=== PATIENT | female | born 1960 | race Hispanic/Latino ===

== ENCOUNTER 2018-06-10 06:23 | Day surgery (SDC) | payer OTHER ==
[2018-06-04 13:37] LABS: Absolute Lymphocytes (CBC) 2.6 K/uL (0.7-4.9); Absolute Monocytes 0.6 K/uL (0.1-1.3); Absolute Neutrophil 4.2 K/uL (1.8-8.0); Basophils % 0.7 % (0-1.3); Hematocrit 44.6 % (36.0-45.0); Lymphocytes % 34.3 % (15.3-44.8); MPV 7.3 fL (7.6-11.3); Monocytes % 8.5 % (3.3-12.3); RBC Red Blood Cell Count 4.76 M/uL (3.86-4.86)
[2018-06-04 13:37] LABS: Urine Appearance CLEAR; Urine Bilirubin NEGATIVE (NEG); Urine Blood NEGATIVE (NEG); Urine Color YELLOW; Urine Glucose NEGATIVE (NEG); Urine Protein NEGATIVE (NEG); Urine Specific Gravity 1.025 (1.005-1.030); Urine Urobilinogen 0.2 mg/dL (0.2-1.0); Urine pH 5.5 (5.0-7.0)
[2018-06-04 13:40] LABS: Urine Microscopic Reflex ORDER UMIC
[2018-06-04 13:43] LABS: Urine Bacteria 20-50 /HPF (<20); Urine RBC <5 /HPF (NONE SEEN)
[2018-06-04 13:44] LABS: Urine Culture Reflex Order NOT NEEDED; Urine Mucus MOD /HPF (NONE SEEN)
[~2018-06-10 06:23] MED LIST: CEFAZOLIN/SWI 1gm 1 GM/10 ML SYR ONE
--- OUTSIDE RECORDS SUMMARY | 2018-06-10 06:26 | XMS REPORT | Clinical Summary ---
:1960 Author Organization [facility] Address [address] [place] [address] Care Team Providers Name Role Phone Johnnie Gibson MD Primary Care Provider Allergies Active Allergy Reactions Severity Noted Date Comments Dexamethasone Other (See Comments) 10/21/2015 Nausea Medications Medication Sig Dispensed Refills Start Date End Date Status acetaminophen-codeine 0 10/17/2015 Active (TYLENOL #3) 300-30 mg per tablet predniSONE (DELTASONE) 0 10/17/2015 Active 10 MG tablet TRAVATAN Z 0.004 % INSTILL 1 DROP 2 09/20/2015 Active INTO BOTH EYES AT BEDTIME DAILY. ibuprofen Take 200 mg by 0 Active (ADVIL,MOTRIN) 200 MG mouth every 6 tablet (six) hours as needed for mild pain. aspirin (ECOTRIN) 81 Take 81 mg by 0 Active MG enteric coated mouth daily. tablet Active Problems Not on file Social History Tobacco Use Types Packs/Day Years Used Date Former Smoker Sex Assigned at Date Recorded Not on file Job Start Date Occupation Industry Not on file Not on file Not on file Travel History Travel Start Travel End No recent travel history available. Last Filed Vital Signs Not on file Plan of Treatment Health Maintenance Due Date Last Done Comments CERVICAL CANCER SCREENING 1982 BREAST CANCER SCREENING 07/18/2011 COLON CANCER SCREENING 07/18/2011 SHINGLES VACCINES (#1) 07/18/2011 INFLUENZA VACCINE 10/23/2017 11/24/2011 Results Not on fileafter 06/09/2017 Insurance Payer Benefit Plan / Group Subscriber ID Type Phone Address [facility] CHOICE/CHOICE + xxxxxxxxx HMO/PPO AETNA AETNA PPO OPEN CHOICE xxxxxxxxx PPO Advance Directives Patient has advance care planning documents on file. For more information, please contact:Daljit Vazquez[address] [place] [address]
[2018-06-10] MEDS ORDERED: Ringers Lactate 1,000 ML IV ONE (07:06)
[2018-06-10] MEDS ORDERED: CEFAZOLIN/SWI 1gm 1 GM/10 ML SYR ONE (07:08)
[2018-06-10] MEDS ORDERED: NA CHLORIDE 0.9% 1,000 ML ONE (07:08)
[2018-06-10] MEDS ORDERED: LIDOCAINE 2% MPF 5 ML VIAL ONE (07:25)
[2018-06-10] MEDS ORDERED: PROPOFOL 200 MG/20 ML VIAL IV ONE (07:25)
[2018-06-10] MEDS ORDERED: FENTANYL CITR 100 MCG/2 ML ONE (07:25)
[2018-06-10] MEDS ORDERED: ONDANSETRON 4 MG/2 ML VIAL ONE ×2 (07:26→10:04)
[2018-06-10] MEDS ORDERED: MIDAZOLAM HCL 2 MG/2 ML INJ ONE (07:26)
[2018-06-10] MEDS ORDERED: VASOPRESSIN 20 UNIT/ML VIAL ONE (07:27)
[2018-06-10] MEDS ORDERED: NA CHLORIDE 0.9% 50 ML ONE (07:27)
[2018-06-10] MEDS: CEFAZOLIN/SWI 2gm 2 GM/20 ML SYR ONE ×2 (07:36→07:42)
[2018-06-10] MEDS ORDERED: SCOPOLAMINE HYDROBROMIDE PATCH TD ONE (07:45)
[2018-06-10] MEDS: HYDROMORPHONE HCL 2 MG/ML inj ONE ×2 (09:01→09:06)
[2018-06-10] MEDS ORDERED: IBUPROFEN 200 MG TAB PO ONE (09:52)
[2018-06-10] MEDS ORDERED: IBUPROFEN 400 MG TAB ONE (09:53)
[2018-06-10] MEDS ORDERED: PROMETHAZINE 25 MG/ML VIAL ONE (12:52)
[2018-06-10 14:42] VITALS: BP 105/63; TEMP 97.4; O2SAT 100
--- NOTE | 2018-06-10 18:56 | OP ---
Date of Procedure: 06/10/2018 Surgeon: Adriana Hayes MD Preoperative Diagnoses: Stress urinary incontinence. Postoperative Diagnoses: Stress urinary incontinence. Procedures Performed: Mid urethral sling, transobturator (TVT-O), and cystoscopy. Anesthesia: General. Specimens: None. Complications: None. Drains: Miramontes catheter. Findings: Urethral hypermobility is noted in the preop exam. Brief History And Physical: The patient is a 57-year-old with complaints of urinary incontinence. T hose were evaluated at bedside, and she underwent urodynamics even though her mobility was well visua lized. Her urinary incontinence had a good component of urgency and urgency incontinence, so this wa s evaluated. She does have an overactive bladder. No other pathology was noted after cystoscopy. T he urine dip was negative for infections. Her Valsalva leak point pressures at S2 and S3 were 63 and 73 cm of water whereas at S4, which was only 600 mL was 26. She had a good capacity and maximal ure thral closure pressure on average was of about 70 cm. The PVR was only 20 mL with a demonstrable hyp ermobility and the pressures were leaked noted as above. Discussed the option of adding the mid uret hral sling after starting to treat the overactive bladder, proceeded with this, and the patient was c onsented and brought to the OR for mid urethral sling. She had done Kegel's exercises with no benefi t, had observed this over a few months, so she was ready to get the sling. Description Of Procedure: After informed consent was verified, she was brought to the OR, 2 g of Anc ef were given preop. Her urine test preop was negative for infection. After the patient was placed in a supine fashion on the operating table, general anesthesia was given, she was placed in a dorsal lithotomy position using Stevo stirrups. The bottom was clipped. Lower abdomen, vulva, vagina, and perineum were prepped and draped in a sterile fashion. Miramontes was placed to drain the bladder and ret racted superiorly after clamping with a Maria Teresa. The groin creases were marked and at the level of the external urethral meatus, markings were made on the groin line 1-2 cm lateral and 1 cm above this, t he exit points for the sling were marked way below the level of the tendon. Mid urethral area was identified by identifying the neck of the bladder above the Miramontes and then in [facility] mid urethral area the vaginal epithelium was picked up on both sides, injected with dilute vasopre ssin 10 cc. A 1 cm incision was made in the midline with a 15-blade. The vaginal epithelium and sub -epithelium were dissected away from the underlying fascia on both sides. Then, using the tips of [facility] Metzenbaum scissors at a 45 degree angle to the horizontal and vertical planes towards the ipsilate ral shoulder, dissection was performed passing under the inferior pubic ramus into the obturator spac e and after the obturator membrane was perforated, the tips of the scissors were opened up and the tr act expanded, and the scissors pulled back. In a similar fashion on the opposite side, same thing wa s done and I was able to create the tract without any problem. The spike was placed, retracing the t ract, and then the spike was passed on top of the wing guide. The wing guide handle was vertical aft er the tip of the spike exited at the skin. Similar pass was taken on the opposite side, after placing the wing guide, the spike was passed along , the plastic sheath was pulled out. The plastic dilators were cut on both sides. The sheaths were held with the sling using Maria Teresa clamps. In the mid urethral area underneath the sling, the Metzengwen m scissors were placed for tensioning. The sleeves were pulled out after proper tensioning was achie anjelica. There was slight distance between the urethra and the sling. It was not too tight, however, no t too loose either. The graft on the skin edges was trimmed, appropriately flushed with the skin. The skin pulled up. T here was no retraction. The vaginal epithelium was closed with the help of a 3-0 Vicryl in a continu ous running locked fashion after thorough irrigation and suction were performed with the saline on e sling and on the incisions in the groins. Dermabond was used to closed the skin incisions. Miramontes was removed. Cystoscopy was performed with [facility] 17-Mauritanian sheath, 30-degree lens and normal saline. At the base of the bladder, the lateral aspec ts were visualized. Urethra was visualized as well. The entire bladder was unremarkable. No eviden ce of any foreign body or trauma to the bladder. The scope was pulled out. Bladder was drained. Fo fatou was replaced. Voiding trials were ordered. The patient was recovered from anesthesia in the OR and taken to PACU in stable condition. Instrument, needle, and sponge counts were correct at the end of the case. The patient tolerated the procedure well. Estimated Blood Loss: 50. Followup: She will follow up with me in 1 week. ALPHONSE/MARY Voice ID: [id number] Report ID: [id number]
== END 2018-06-10 14:03 | disposition home or self-care (01) ==
LOC: OR 06:23
PROVIDERS: ATTEND Obstetrics & Gynecology
PROC: 0TSD0ZZ Reposition Urethra, Open Approach (ICD-10-PCS; principal; 2018-06-10 07:30)
DX: N39.46 Mixed incontinence (principal); N36.41 Hypermobility of urethra; N32.81 Overactive bladder; N95.2 Postmenopausal atrophic vaginitis
CPT/HCPCS: 36415; 81003; 81015; 85025; 86850; 86900; 86901; J0690; J1170; J2250; J2405; J2550; J2704; J3010; J7030

== ENCOUNTER 2022-08-01 08:18 | Emergency (ER) | payer OTHER ==
--- NOTE | 2022-08-01 08:54 | RAD REPORT ---
EXAM DESCRIPTION: CT - C Spine Wo Con - 08/01/2022 8:45 am CLINICAL HISTORY: neck pain COMPARISON: No comparisons TECHNIQUE: CT Scan was obtained of the cervical spine without contrast. Reformats were provided in t he sagittal and coronal plane. FINDINGS: No acute fracture of the cervical spine. No traumatic malalignment. No prevertebral edema. Posterior disc osteophyte complex that C4-5 results least moderate central spinal stenosis. There is also moderate to severe neural foraminal narrowing at this level bilaterally. Mild disc height loss at C5-6 and C6-7 with uncovertebral joint hypertrophy. This results in mild neural foraminal narrowin g on the left at C6-7. No suspicious thyroid nodules or lymphadenopathy. The lung apices are clear. IMPRESSION: No fracture or traumatic malalignment of the cervical spine. Cervical spondylosis as not ed above.
[2022-08-01] MEDS ORDERED: DIAZEPAM 10 MG/2 ML INJ SYRINGE ONE (08:57)
[2022-08-01] MEDS ORDERED: KETAMINE HCL IN 0.9 % NACL 50 MG/5 ML SYRINGE IV ONE (08:58)
[2022-08-01] MEDS ORDERED: FENTANYL CITR 100 MCG/2 ML ONE (11:30)
[2022-08-01] MEDS ORDERED: METHYLPREDNISOLONE 125 MG INJ ONE (11:32)
--- NOTE | 2022-08-01 12:11 | EDPHYS ---
Physician Documentation [facility] Name: Anna Naik Age: 62 yrs Sex: Female : 1960 Arrival Date: 08/01/2022 Time: 08:18 Bed 20 Private MD: ED Physician Edu Pickett HPI: 08/01 08:25 This 62 yrs old Female presents to ER via Ambulatory with complaints of Arm jmm Pain. 08:25 The patient or guardian complains of pain. This is a 62 year old female that presents jm to the ED with complaints of neck pain which radiates into her left arm. Symptoms have been ongoing for weeks. Worsened this morning with increased pain with movement of her neck. . Historical: - Allergies: 09:01 Dexamethasone; db - Immunization history:: Adult Immunizations unknown. - Social history:: Smoking status: Patient denies any tobacco usage or history of. ROS: 08:25 Constitutional: Negative for fever, chills, and weight loss, Cardiovascular: Negative jmm for chest pain, palpitations, and edema, Respiratory: Negative for shortness of breath, cough, wheezing, and pleuritic chest pain. 08:25 Neck: Positive for pain with movement. 08:25 MS/extremity: Positive for pain. 08:25 All other systems are negative. Exam: 08:25 Head/Face: atraumatic. Eyes: EOMI, no conjunctival erythema appreciated ENT: Moist jmm Mucus Membranes 08:25 Chest/axilla: Normal chest wall appearance and motion. Cardiovascular: Regular rate and rhythm. No edema appreciated Respiratory: Normal respirations, no respiratory distress appreciated Abdomen/GI: Non distended Back: Normal ROM Skin: General appearance color normal MS/ Extremity: Moves all extremities, no obvious deformities appreciated, no edema noted to the lower extremities Neuro: Awake and alert 08:25 Constitutional: The patient appears alert, awake, anxious, in obvious pain. 08:25 Neck: C-spine: vertebral tenderness, that is mild, diffusely, ROM/movement: pain, that is moderate, with any movement. 08:25 Psych: Behavior/mood is pleasant, cooperative, anxious. Vital Signs: 08:30 BP 113 / 90; Pulse 84; Resp 16; Pulse Ox 100% on R/A; db 08:30 BP 128 / 90; Pulse 83; Resp 16; Temp 98.2(O); Pulse Ox 100% ; Weight 76.2 kg; Height 5 db ft. 5 in. ; Pain 10/10; 09:30 BP 133 / 90; Pulse 84; Resp 16; Pulse Ox 100% on R/A; Pain 2/10; eh3 10:30 BP 119 / 79; Pulse 70; Resp 12; Pulse Ox 100% on 2 lpm NC; eh3 11:30 BP 117 / 80; Pulse 68; Resp 14; Pulse Ox 96% on R/A; eh3 12:00 BP 123 / 73; Pulse 63; Resp 14; Pulse Ox 99% on R/A; eh3 08:30 Body Mass Index 27.96 (76.20 kg, 165.1 cm) db 08:30 Pain Scale: Adult db 09:30 Pain Scale: Adult eh3 MDM: 08:25 Patient medically screened. sb 15:47 Differential diagnosis: Cervical radiculopathy, osteoarthritis, rheumatoid arthritis. sharonda Data reviewed: vital signs, nurses notes, radiologic studies, CT scan. I considered the following discharge prescriptions or medication management in the emergency department Medications were administered in the Emergency Department. See MAR. Counseling: I had a detailed discussion with the patient and/or guardian regarding: the historical points, exam findings, and any diagnostic results supporting the discharge/admit diagnosis, radiology results, the need for outpatient follow up, to return to the emergency department if symptoms worsen or persist or if there are any questions or concerns that arise at home. ED course: Pain is alleviated in the ED. Advised to follow-up with spine/neurosurgery for further evaluation otherwise given strict return precautions. Patient agrees plan of care.. 08/01 08:33 Order name: CT C Spine; Complete Time: 08:58 [facility] 08/01 08:25 Order name: Saline Lock; Complete Time: 09:08 [facility] Administered Medications: 08:58 Drug: Diazepam IVP 2 mg Route: IVP; Site: right antecubital; 3 09:45 Follow up: Response: No adverse reaction; Pain is decreased eh3 09:00 Drug: Ketamine IVP 10 mg Route: IVP; Site: right antecubital; eh3 09:45 Follow up: Response: No adverse reaction; Pain is decreased 3 10:20 Drug: Ketamine IVP 10 mg Route: IVP; Site: right antecubital; eh3 11:15 Follow up: Response: Pain is decreased eh3 10:20 Drug: Diazepam IVP 5 mg Route: IVP; Site: right antecubital; eh3 11:15 Follow up: Response: Pain is decreased eh3 10:20 Drug: Ondansetron IVP 4 mg Route: IVP; Site: right antecubital; eh3 11:15 Follow up: Response: No adverse reaction eh3 11:30 Drug: fentaNYL (PF) IVP 50 mcg {Note: administered 25mcg per MARIBELL Pak.} Route: eh3 IVP; Site: right antecubital; 11:45 Follow up: administered 25mcg (2nd dose) per MARIBELL Pak eh3 12:38 Follow up: Response: Pain is decreased eh3 11:30 Drug: MethylPrednisoLONE IVP 125 mg Route: IVP; Site: right antecubital; eh3 12:38 Follow up: Response: No adverse reaction eh3 Disposition: 12:24 Co-signature as Attending Physician, Edu MERCHANT was immediately available on-site ms3 in the Emergency Department for consultation in the care of the patient. Disposition Summary: 08/01/22 12:10 Discharge Ordered Location: Home [facility] Condition: Stable [facility] Diagnosis - Radiculopathy, cervical region [facility] Followup: [facility] - With: Private Physician - When: 2 - 3 days - Reason: Recheck today's complaints, Continuance of care, Re-evaluation by your physician Followup: [facility] - With: Skip Kelsey MD - When: 2 - 3 days - Reason: Recheck today's complaints, Continuance of care, Re-evaluation by your physician Discharge Instructions: - Discharge Summary Sheet [facility] - Cervical Radiculopathy [facility] Forms: - Medication Reconciliation Form [facility] - Thank You Letter [facility] - Antibiotic Education [facility] - Prescription Opioid Use [facility] Prescriptions: - ondansetron 4 mg Oral Tablet,disintegrating - take 1 tablet by ORAL route every 4 hours As needed as needed for nausea and m vomiting; 20 tablet; Refills: 0, Product Selection Permitted - Prednisone 20 mg Oral Tablet - take 3 tablets by ORAL route once daily for 5 days; 15 tablet; Refills: 0, [facility] Product Selection Permitted - Ultracet 37.5-325 mg Oral Tablet - take 1 tablet by ORAL route every 6 hours - for up to 5 days; do not exceed 8 jmm tablets per day.; 30 tablet; Refills: 0, Product Selection Permitted - Zanaflex 4 mg Oral Tablet - take 1 tablet by ORAL route every 8 hours As needed; 20 tablet; Refills: 0, jmm Product Selection Permitted Signatures: Dispatcher [employer] Christiano Moore PA PA jmm Sims, Marcus, DO DO ms3 Keyla Shaw RN RN eh3 Lisa Llamas, RN RN db
--- NOTE | 2022-08-01 12:11 | ER ---
Nurse's Notes [facility] Name: Anna Naik Age: 62 yrs Sex: Female : 1960 Arrival Date: 08/01/2022 Time: 08:18 Bed 20 Private MD: Diagnosis: Radiculopathy, cervical region Presentation: 08/01 08:30 Chief complaint: Patient states: left arm and shoulder pain increased last night. db Denies recent injury. States 2 weeks ago saw provider and was given moloxacam and stopped taking medicine 4 days ago because pain stopped. Coronavirus screen: Vaccine status: Patient reports receiving the 2nd dose of the covid vaccine. Client denies travel out of the [place] in the last 14 days. At this time, the client does not indicate any symptoms associated with coronavirus-19. Ebola Screen: Patient negative for fever greater than or equal to 101.5 degrees Fahrenheit, and additional compatible Ebola Virus Disease symptoms Patient denies exposure to infectious person. Patient denies travel to an Ebola-affected area in the 21 days before illness onset. No symptoms or risks identified at this time. Initial Sepsis Screen: Does the patient meet any 2 criteria? No. Patient's initial sepsis screen is negative. Does the patient have a suspected source of infection? No. Patient's initial sepsis screen is negative. Risk Assessment: Do you want to hurt yourself or someone else? Patient reports no desire to harm self or others. Onset of symptoms was August 01, 2022. 08:30 Method Of Arrival: Ambulatory db 08:30 Acuity: VINCENZO 3 db Triage Assessment: 09:01 General: Appears in no apparent distress. uncomfortable, Behavior is calm, cooperative. db Pain: Complains of pain in left arm. Historical: - Allergies: 09:01 Dexamethasone; db - Immunization history:: Adult Immunizations unknown. - Social history:: Smoking status: Patient denies any tobacco usage or history of. Screenin:30 [facility] ED Fall Risk Assessment (Adult) Score/Fall Risk Level 0 - 2 = Low Risk. Abuse eh3 screen: Denies threats or abuse. Denies injuries from another. Nutritional screening: No deficits noted. Tuberculosis screening: No symptoms or risk factors identified. Assessment: 08:30 General: Appears distressed, uncomfortable, Behavior is cooperative, appropriate for eh3 age, restless. Pain: Complains of pain in left arm Pain does not radiate. Neuro: Level of Consciousness is awake, alert, obeys commands, Oriented to person, place, time, situation. Cardiovascular: Capillary refill < 3 seconds Patient's skin is warm and dry. Respiratory: Airway is patent Respiratory effort is even, unlabored, Respiratory pattern is regular, symmetrical. GI: Abdomen is round non-distended. : No signs and/or symptoms were reported regarding the genitourinary system. EENT: No signs and/or symptoms were reported regarding the EENT system. Derm: Skin is intact, is healthy with good turgor, Skin is pink, warm \T\ dry. Musculoskeletal: Circulation, motion, and sensation intact. Range of motion: limited in left shoulder. 08:40 Reassessment: patient to CT. db 09:30 Reassessment: Patient appears in no apparent distress at this time. Patient and/or 3 family updated on plan of care and expected duration. Pain level reassessed. Patient is alert, oriented x 3, equal unlabored respirations, skin warm/dry/pink. Patient states symptoms have improved. 10:20 Reassessment: Pt desaturated to 85% on room air after 2nd dose of Ketamine and eh3 Diazepam, administered O2 via NC at 2lpm, SpO2 increased to 97%. 10:30 Reassessment: Patient appears in no apparent distress at this time. Patient and/or 3 family updated on plan of care and expected duration. Pain level reassessed. Patient is alert, oriented x 3, equal unlabored respirations, skin warm/dry/pink. 10:40 Reassessment: Supplemental O2 via NC discontinued; pt maintains SpO2 of 98% on room air.eh3 11:30 Reassessment: Patient appears in no apparent distress at this time. Patient and/or 3 family updated on plan of care and expected duration. Pain level reassessed. Patient is alert, oriented x 3, equal unlabored respirations, skin warm/dry/pink. Vital Signs: 08:30 BP 113 / 90; Pulse 84; Resp 16; Pulse Ox 100% on R/A; db 08:30 BP 128 / 90; Pulse 83; Resp 16; Temp 98.2(O); Pulse Ox 100% ; Weight 76.2 kg; Height 5 db ft. 5 in. ; Pain 10/10; 09:30 BP 133 / 90; Pulse 84; Resp 16; Pulse Ox 100% on R/A; Pain 2/10; eh3 10:30 BP 119 / 79; Pulse 70; Resp 12; Pulse Ox 100% on 2 lpm NC; eh3 11:30 BP 117 / 80; Pulse 68; Resp 14; Pulse Ox 96% on R/A; eh3 12:00 BP 123 / 73; Pulse 63; Resp 14; Pulse Ox 99% on R/A; eh3 08:30 Body Mass Index 27.96 (76.20 kg, 165.1 cm) db 08:30 Pain Scale: Adult db 09:30 Pain Scale: Adult 3 ED Course: 08:22 Patient arrived in ED. bd 08:25 Christiano Roebrt PA is PHCP. jmm 08:25 Edu Pickett DO is Attending Physician. jmm 08:30 Patient has correct armband on for positive identification. Bed in low position. Call 3 light in reach. Side rails up X2. Adult w/ patient. Client placed on continuous cardiac and pulse oximetry monitoring. NIBP monitoring applied. Door closed. Noise minimized. Lights dimmed. 08:33 Keyla Shaw, GARRETT is Primary Nurse. eh3 08:46 CT C Spine In Process Unspecified. EDMS 08:57 Inserted saline lock: 20 gauge in right antecubital area, using aseptic technique. eh3 09:01 Triage completed. db 09:01 Arm band placed on Patient placed in an exam room. db 12:11 Skip Kelsey MD is Referral Physician. [facility] 12:30 No provider procedures requiring assistance completed. IV discontinued, intact, eh3 bleeding controlled, No redness/swelling at site. Pressure dressing applied. Administered Medications: 08:58 Drug: Diazepam IVP 2 mg Route: IVP; Site: right antecubital; eh3 09:45 Follow up: Response: No adverse reaction; Pain is decreased eh3 09:00 Drug: Ketamine IVP 10 mg Route: IVP; Site: right antecubital; eh3 09:45 Follow up: Response: No adverse reaction; Pain is decreased eh3 10:20 Drug: Ketamine IVP 10 mg Route: IVP; Site: right antecubital; eh3 11:15 Follow up: Response: Pain is decreased eh3 10:20 Drug: Diazepam IVP 5 mg Route: IVP; Site: right antecubital; eh3 11:15 Follow up: Response: Pain is decreased eh3 10:20 Drug: Ondansetron IVP 4 mg Route: IVP; Site: right antecubital; eh3 11:15 Follow up: Response: No adverse reaction 3 11:30 Drug: fentaNYL (PF) IVP 50 mcg {Note: administered 25mcg per MARIBELL Pak.} Route: eh3 IVP; Site: right antecubital; 11:45 Follow up: administered 25mcg (2nd dose) per MARIBELL Pak eh3 12:38 Follow up: Response: Pain is decreased eh3 11:30 Drug: MethylPrednisoLONE IVP 125 mg Route: IVP; Site: right antecubital; eh3 12:38 Follow up: Response: No adverse reaction 3 Medication: 12:30 VIS not applicable for this client. 3 Intake: Outcome: 12:10 Discharge ordered by MD. basurto 12:30 Discharged to home via wheelchair, with family. 3 12:30 Condition: stable 12:30 Discharge instructions given to patient, family, Instructed on discharge instructions, follow up and referral plans. medication usage, Demonstrated understanding of instructions, follow-up care, medications, Prescriptions given X 4. 12:37 Patient left the ED. 3 Signatures: Dispatcher [employer] EDMS Maisha Walter Joel, PA PA Keyla Bustillos RN RN 3 Lisa Llamas RN RN db Corrections: (The following items were deleted from the chart) 10:44 10:30 Reassessment: Pt desaturated to 85% on room air after 2nd dose of Ketamine and 3 Diazepam, administered O2 via NC at 2lpm, SpO2 increased to 97% 3 11:17 10:40 Reassessment: O2 discontinued; pt maintains SpO2 of 98% on room air [facility] 12:35 12:30 Discharged to home ambulatory, with family, 3 3
[2022-08-01 12:47] VITALS: TEMP 98.2
[2022-08-01 13:05] VITALS: BP 123/73; O2SAT 99
== END 2022-08-01 12:37 | disposition home or self-care (01) ==
LOC: SUPCPDRO 08:18 → ER 08:18
DX: M54.12 Radiculopathy, cervical region (principal); Z88.8 Allergy status to other drugs, medicaments and biological substances
CPT/HCPCS: 72125; J3360; J3010; J2930

== ENCOUNTER 2023-01-18 23:03 | Inpatient (IN) | payer OTHER ==
--- OUTSIDE RECORDS SUMMARY | 2023-01-18 23:06 | XMS REPORT | Continuity of Care Document ---
:1960 Author Organization [facility] t Address [address] [place] [address] [address] [place] [address] Care Team Providers Name Role Phone Paige WATERS, Johnnie Beach Primary Care Physician Chris WATERS, Tirso Orantes Attending Clinician [phone] Malik WATERS, Glen Champagne Attending Clinician [phone] Michelle Sullivan APRN Attending Clinician [phone] TIRSO HAWKINS Admitting Clinician Unavailable Payers Payer Name Policy Type Policy Number Effective Date Expiration Date S ource Problems Condition Condition Condition Status Onset Resolution Last Treating Co mments Source Name Details Category Date Date Treatment Clinician Date Cervical Cervical Disease Active Metho di myelopathy myelopathy 09-03 00:00: Hospita 00 l Allergies, Adverse Reactions, Alerts Allergy Allergy Status Severity Reaction(s) Onset Inactive Treating Comm ents Source Name Type Date Date Clinician Titi Bowser Active GI Methodi ty to Intolerance 09-03 adverse 00:00: Hospita reaction 00 l s to drug Social History Social Habit Start Date Stop Date Quantity Comments Source History of tobacco Current smoker [facility] Alcohol intake 2022-09-05 2022-09-05 Current drinker [facility] dist 00:00:00 00:00:00 of alcohol Hospital (finding) History of Social 2022-09-05 2022-09-[address] function 00:00:00 00:00:00 Hospital Sex Assigned At [birth year] [facility] 00:00:00 00:00:00 Hospital Smoking Status Start Date Stop Date Source Ex-smoker 2022-09-03 00:00:00 2022-09-03 [facility] Ordered Filled Start Stop Current Ordering Indication Dosage Frequency Signature Comments Components Source Medication Medication Date Date Medication? Clinician (SIG) Name Name ibuprofen 2022- No 200mg Q6H Take 1 Meth yara (ADVIL,MOTR -04 09-[address] [place]) 200 MG 11:48: 00:00 (200 mg Hos mica tablet 42 :00 total) by l mouth every 6 (six) hours as needed for mild pain. aspirin 2022- No 81mg QD Take 1 Methodi (ECOTRIN) 09-04 tablet (81 st 81 MG 11:48: 00:00 mg total) Hospit a enteric 42 :00 by mouth l coated daily. tablet tafluprost, Yes 1[drp] QD 1 drop Me thodi PF, 6-[address] (Zioptan, 11:48: Hospita PF,) 0.0015 40 l % dropperette flecainide Yes 100mg Q.5D Take 1 Meth yara (TAMBOCOR) [address] 100 MG 11:48: (100 mg Hospita tablet 40 total) by l mouth 2 (two) times a day. traMADol-ac 0 Yes [id number] 1{tbl} Q6H Take 1 M ethodi etaminophen -[address] (ULTRACET) 11:48: mouth Hospit a 37.5-325 mg 40 every 6 l per tablet (six) hours as needed for moderate pain .acute pain. tiZANidine 0 Yes 4mg Q8H Take 1 Metho di (ZANAFLEX) 6-13 tablet (4 st 4 MG tablet 11:48: mg total) H ospita 40 by mouth l every 8 (eight) hours as needed for muscle spasms. diltiazem 2022-0 Yes Q.25D Take by Meth yara (CardIZEM) 6-[address] 30 MG 11:48: (four) Hospita tablet 40 times a l day. estradioL 2023-0 Yes 10ug QD Insert 10 Met hodi (Vagifem) 6-[address] 10 mcg 11:48: the vagina Hospi ta vaginal 40 daily. l tablet predniSONE Yes [facility] (DELTASONE) 10-16 st 10 MG 00:00: Hospita tablet 00 l acetaminoph Metho di en-codeine 10-16 06-12 st (TYLENOL 00:00: 00:00 Hospita #3) 300-30 00 :00 l mg per tablet TRAVATAN Z Yes INSTILL 1 Tx thodi 0.004 % 6-[address] 00:00: BOTH EYES Hospita 00 AT BEDTIME l DAILY. Vital Signs Vital Name Observation Time Observation Value Comments Source Heart rate 2022-09-04 81 /min [facility] 15:59:00 [facility] Respiratory rate 2022-09-04 21 /min [facility] 15:59:00 [facility] Systolic blood 2022-09-04 124 mm[Hg] sit, 119/64 [facility] pressure 14:06:00 stand, 131/77 Hospital post ambulation Diastolic blood 2022-09-04 60 mm[Hg] sit, 119/64 [facility] pressure 14:06:00 stand, 131/77 Hospital post ambulation Oxygen saturation 2022-09-04 97 /min [facility] in Arterial blood 14:06:00 Hospital by Pulse oximetry Body temperature 2022-09-04 36.94 Kassy [facility] 12:56:57 [facility] Body height 2022-09-03 165.1 cm [facility] 11:26:00 [facility] Body weight 2022-09-03 75.297 kg [facility] 11:26:00 [facility] BMI 2022-09-03 27.62 kg/m2 [facility] 11:26:00 Hospital Procedures Procedure Date / Time Performing Clinician Source Performed XR CERVICAL SPINE 2 OR 3 2022-12-05 17:25:00 Tirso Hawkins [facility] [place] XR CERVICAL SPINE 2 OR 3 2022-09-17 17:52:00 Tirso Hawkins [facility] [place] XR CERVICAL SPINE 2 OR 3 2022-09-03 20:11:00 Tirso Hawkins [facility] [place] POC GLUCOSE 2022-09-03 18:38:00 [facility] [place] SURGICAL PATHOLOGY 2022-09-03 15:45:00 [facility] REQUEST [place] > 1 HOUR 2022-09-03 14:30:00 [facility]so [facility] [place] ARTERIAL LINE 2022-09-03 13:26:51 [facility] Lisa AR AN ELECTIVE 2022-09-03 12:29:00 [facility] ENDOTRACHEAL AIRWAY Lisa DISCECTOMY, CERVICAL, 2022-09-03 12:20:00 Tirso Hawkins [facility] WITH FUSION, ANTERIOR [place] APPROACH ABO AND RH CONFIRMATION 2022-09-03 11:40:[address] [facility] BY PROTOCOL [place] TYPE AND SCREEN 2022-08-29 17:42:[address] [facility] HEMOGLOBIN A1C 2022-08-29 17:42:[address] [facility] CBC WITH PLATELET AND 2022-08-29 17:42:00 [facility] DIFFERENTIAL COMPREHENSIVE METABOLIC 2022-08-29 17:42:00 [facility] PANEL ESTIMATED GFR 2022-08-29 17:42:[address] [facility] ECG PRE/POST OP 2022-08-29 17:25:[address] [facility] MRI SPINE EXTERNAL STUDY 2022-08-16 13:59:00 Tirso Hawkins [facility] [place] CT SPINE EXTERNAL STUDY 2022-08-01 13:44:[address] [facility] [place] XR SPINE EXTERNAL STUDY 2022-07-12 13:51:[address] [facility] [place] XR CHEST EXTERNAL STUDY 2022-07-12 13:48:[address] [facility] [place] Plan of Care Planned Activity Planned Date Details Comments Source Future Scheduled 2023-01-18 Screening for [facility] Test 00:57:43 malignant neoplasm of colon (procedure) [code = 851135717] Future Scheduled 2023-01-18 INFLUENZA VACCINE [facility] Test 00:57:43 (#1) [code = INFLUENZA VACCINE (#1)] Future Scheduled 2023-01-18 [facility] for [facility] Test 00:57:43 malignant neoplasm of colon (procedure) [code = 893632420] Future Scheduled 2023-01-18 [facility] for [facility] Test 00:57:43 malignant neoplasm of colon (procedure) [code = 055989700] Future Scheduled 2023-01-18 COVID-[address] [facility] Test 00:57:43 (#1) [code = COVID-19 VACCINE (#1)] Future Scheduled 2023-01-18 Hepatitis C [facility] Test 00:57:43 screening (procedure) [code = 950058626] Future Scheduled 2023-01-18 [facility] for [facility] Test 00:57:43 malignant neoplasm of cervix (procedure) [code = 348840002] Future Scheduled 2023-01-18 BREAST [facility]CER [facility] Test 00:57:43 SCREENING [code = BREAST CANCER SCREENING] Future Scheduled 2023-01-18 [facility] for [facility] Test 00:57:43 malignant neoplasm of colon (procedure) [code = 157052959] Future Scheduled 2023-01-18 SHINGLES VACCINES [facility] Test 00:57:43 (1 of 2) [code = SHINGLES VACCINES (1 of 2)] Future Scheduled 2023-01-18 [facility]ening for [facility] Test 00:57:43 malignant neoplasm of colon (procedure) [code = 453982786] Encounters Start End Encounter Admission Attending Care Care Encounter Source Date/Time Date/Time Type Type Clinicians Facility Department ID 2022-12-05 2022-12-05 [facility], 1.2.840.1 [id number] Methodi 12:12:15 23:59:00 Encounter Tirso 78861.1.1 Qiana Orantes 3.430.2.7 Hospi .3.660296 l .8 2022-12-05 2022-12-05 Outpatient [facility] [id number] [address] [place] 00:00:00 00:00:[address] 2022-12-05 2022-12-05 [facility], 1.2.840.1 [id number] Method[facility] 00:00:00 00:00:00 Orders Tirso 43748.1.[address] [place] 3.430.2.7 Hospi ta .3.175619 l .8 2022-09-17 2022-09-17 [facility], 1.2.840.1 [id number] Methodi 12:15:00 23:59:00 Encounter Tirso 38911.1.1 9[address] [place] 3.430.2.7 Hospi ta .3.220651 l .8 2022-09-17 2022-09-17 Outpatient [facility] [id number] [address] [place] [address] 00:00:00 00:00:00 [address]SO [address] 2022-09-17 2022-09-17 [facility], 1.2.840.1 [id number] Methodi 00:00:00 00:00:00 Orders Tirso [address]22.1.[address] [place] 3.430.2.7 Hospi ta .3.039194 l .8 2022-09-03 2022-09-04 [facility], 1.2.840.1 [id number] Methodi 05:29:00 11:45:00 Encounter Tirso 12785.1.1 838 [address] [place] 3.430.2.7 Hospi ta .3.666306 l .8 2022-09-03 2022-09-04 Outpatient [facility] [id number] [address] [place] 00:00:00 00:00:00 TIRSO [address] 2022-09-03 2022-09-03 Surgery [facility], 1.2.840.1 [id number] Methodi 07:15:00 10:15:[address] [place] 3.430.2.7 Hospi ta .3.979232 l .8 2022-09-03 2022-09-03 Anesthesia [place] 1.2.840.1 [id number] Methodi 07:20:00 10:04:[address]1.[address] 3.430.2.7 Hospit a .3.231582 l .8 2022-09-03 2022-09-03 Travel 1.2.840.1 1.2.514.047 [id number] Methodi 00:00:00 00:00:[address] 3.430.2.7 0.2.7.3.698 Ho spita .3.211751 084.8 l .8 2022-08-29 2022-08-29 Pre-Admiss Chela Hawkinsnathan [place] 1.2.8 40.1 [id number] Methodi 11:30:00 12:30:00 Michelle Ruiz 41249.1.[address] Testing 3.430.2.7 Hospit a .3.704608 l .8 2022-08-29 2022-08-29 [facility] [id number] [address] [place] [address] 00:00:00 00:00:00 TIRSO [address] 2022-08-29 2022-08-29 Travel 1.2.840.1 1.2.946.738 [id number] Methodi 00:00:00 00:00:[address] 3.430.2.7 0.2.7.3.698 Ho spita .3.900254 084.8 l .8 2022-08-28 2022-08-28 [facility] 1.2.840.1 [id number] [id number] Methodi 10:04:43 23:59:00 Encounter Tirso 20171.1.1 944 s t [place] 3.430.2.7 Hospi ta .3.871329 l .8 2022-08-28 2022-08-28 [facility], 1.2.840.1 [id number] Methodi 10:04:03 23:59:00 Encounter Tirso 24821.1.1 765 [address] [place] 3.430.2.7 Hospi ta .3.242729 l .8 2022-08-28 2022-08-28 [facility], 1.2.840.1 [id number] Methodi 10:03:23 10:03:23 Encounter Tirso 60154.1.1 590 [address] [place] 3.430.2.7 Hospi ta .3.879270 l .8 2022-08-28 2022-08-28 [facility], 1.2.840.1 [id number] Methodi 10:02:51 10:02:51 Encounter Tirso 34846.1.1 [address] [place] 3.430.2.7 Hospi ta .3.081001 l .8 2022-08-28 2022-08-28 [facility] [id number] [place] [address] 00:00:00 00:00:00 TIRSO [address] 2022-08-28 2022-08-[address] 00:00:00 00:00:00 TIRSO [address] 2022-08-28 2022-08-[address] 00:00:00 00:00:[address]IRSO [address] 2022-08-28 2022-08-28 [facility] [id number] [place] [address] 00:00:00 00:00:[address]IRSO [address] Results Test Description Test Time Test Comments Results Result Comments Source Surgical pathology request 2022-09-04 21:44:50 Test Item Value Reference Range Interpretation Comme nts Case number (test code = 1744440) [id number] Surgical pathology report (test code = See link below for PDF Lab R eport 5700) Result status (test code = 2434229) This is Final Report for [id number] [facility] [id number] 18:39:00 Test Item Value Reference Range Interpretation Comments POC glucose (test code 120 mg/dL 65-99 H Opera tor Name: Raul = [id number]) Twial Wright ID: [id number] able: [facility] Notified insemination worker Interpretation Abnormal (test code = 26613-8) [facility] [id number] 13:17:26 Test Item Value Reference Range Interpretation Comments Ventricular rate (test 59 code = 253) Atrial rate (test code = 59 255) AR interval (test code = 140 266) QRSD interval (test code 92 = 260) QT interval (test code = 384 264) QTC interval (test code 380 = 265) P axis 1 (test code = 27 267) QRS axis 1 (test code = 49 268) T wave axis (test code = 39 270) EKG impression (test Sinus code = 273) bradycardia-Otherwise normal ECG-No previous ECGs available-Electronica lly Signed By Marla Gomez MD ([id number]) on 08/30/2022 8:16:23 AM [facility]
[2023-01-18 23:39] LABS: Absolute Lymphocytes (CBC) 2.1 K/uL (0.7-4.9); Hematocrit 38.8 % (36.0-45.0); Lymphocytes % 21.2 % (15.3-44.8); MPV 7.1 fL (7.6-11.3); Platelets 209 thou/uL (152-406); RBC Red Blood Cell Count 4.18 M/uL (3.86-4.86)
[2023-01-18 23:46] LABS: Specific Gravity 1.008 (1.005-1.030); Urine Bacteria None Seen /HPF (<20); Urine Bilirubin NEGATIVE (Negative); Urine Blood Trace (Negative); Urine Clarity Clear (Clear); Urine Color Colorless (Yellow); Urine Glucose NEGATIVE (Negative); Urine Protein NEGATIVE (Negative); Urine RBC <5 /HPF (None Seen); Urine Urobilinogen Normal (Normal)
[2023-01-18 23:57] LABS: Albumin 3.6 g/dL (3.4-5.0); Bilirubin Total 0.4 mg/dL (0.2-1.0); Potassium 3.8 mEq/L (3.5-5.1); Protein, Total 7.2 g/dL (6.4-8.2)
[2023-01-19] MEDS ORDERED: MORPHINE 4 MG/ML SYR ONE ×2 (00:13→14:00)
[2023-01-19] MEDS ORDERED: ONDANSETRON 4 MG/2 ML VIAL ONE ×3 (00:14→10:32)
[2023-01-19] MEDS ORDERED: MORPHINE 2 MG/ML SYR ONE (01:06)
--- NOTE | 2023-01-19 01:31 | EDPHYS ---
Physician Documentation [facility] Name: Anna Naik Age: 62 yrs Sex: Female : 1960 Arrival Date: 01/18/2023 Time: 23:03 Bed 23 Private MD: Peri Gibson C ED Physician Leonides Christian HPI: 01/18 23:33 This 62 yrs old Female presents to ER via Ambulatory with complaints of rn Abdominal Pain. 23:33 The patient presents with abdominal pain in the left lower quadrant. Onset: The rn symptoms/episode began/occurred 10 day(s) ago. The symptoms radiate to left back. Associated signs and symptoms: Pertinent positives: nausea, Pertinent negatives: blood in stools, fever, hematuria. The symptoms are described as crampy, intermittent. Modifying factors: The symptoms are alleviated by nothing, the symptoms are aggravated by pressure. Severity of pain: At its worst the pain was moderate in the emergency department the pain is unchanged. The patient has experienced a previous episode. The patient has not recently seen a physician. Patient reports 10 days of left lower quadrant abdominal pain that got worse today. History of diverticulitis in the past. Feels similar. Reports low-grade temperature. No vomiting or blood in stool.. Historical: - Allergies: 23:20 Dexamethasone; kd3 - Immunization history:: Adult Immunizations up to date. - Social history:: Smoking status: Patient denies any tobacco usage or history of. - Family history:: not pertinent. - Hospitalizations: : No recent hospitalization is reported. ROS: 23:33 Constitutional: Positive for fever Cardiovascular: Negative for chest pain, rn palpitations, and edema, Respiratory: Negative for shortness of breath, cough, wheezing, and pleuritic chest pain, Abdomen/GI: Positive for left lower quadrant abdominal pain Back: Positive for left lower back pain MS/Extremity: Negative for injury and deformity, Skin: Negative for injury, rash, and discoloration, Neuro: Negative for headache, weakness, numbness, tingling, and seizure, Exam: 23:33 Constitutional: This is a well developed, well nourished patient who is awake, alert, rn appears uncomfortable, ambulatory to room without assistance Head/Face: Normocephalic, atraumatic. Cardiovascular: Regular rate and rhythm. No pulse deficits. Respiratory: No increased work of breathing, no retractions or nasal flaring. Abdomen/GI: Soft, tender left lower quadrant and left upper quadrant with guarding. Skin: Warm, dry MS/ Extremity: Pulses equal, no cyanosis. Neuro: Awake and alert, GCS 15 Vital Signs: 23:19 BP 135 / 89; Pulse 97; Resp 16; Temp 99.6; Pulse Ox 100% on R/A; Weight 73.48 kg; kd3 Height 5 ft. 5 in. ; 23:19 Body Mass Index 26.96 (73.48 kg, 165.1 cm) kd3 MDM: 23:05 Patient medically screened. rn 01/19 01:30 Differential diagnosis: appendicitis, bowel obstruction, diverticulitis, non-specific rn abd pain. Data reviewed: vital signs, nurses notes, lab test result(s), radiologic studies, CT scan, and as a result, I will admit patient. Consideration of Admission/Observation Patient was admitted/placed on observation. Escalation of care including admission/observation considered. Counseling: I had a detailed discussion with the patient and/or guardian regarding the historical points, exam findings, and any diagnostic results supporting the discharge/admit diagnosis, lab results, radiology results, the need for further work-up and treatment in the hospital. Response to treatment: There is no appreciated change of the patient's symptoms at this time, and as a result, I will admit patient. 01:30 ED course: Patient with mild improvement but still complaining of pain. Will give a rn dose of Dilaudid since morphine was not really doing much. CT chest resulted no evidence of perforation/free air/free fluid. No abscess. Will admit to Dr. Gibson with surgical consultation. 05:45 ED course: Consulted with Dr. Gallo regarding patient's diagnosis of non-perforated rn diverticulitis and delayed presentation, will see patient today. . 01/18 23:20 Order name: CBC with Diff; Complete Time: 23:58 rn 01/18 23:20 Order name: CMP; Complete Time: 23:58 rn 01/18 23:20 Order name: Urinalysis w/ reflexes; Complete Time: 23:58 rn 01/18 23:20 Order name: CT Abd/Pelvis - IV Contrast Only rn 01/18 23:20 Order name: IV Saline Lock; Complete Time: 23:33 rn 01/18 23:20 Order name: Labs collected and sent; Complete Time: 23:33 rn 01/18 23:20 Order name: NPO; Complete Time: 00:02 rn Administered Medications: 00:07 Drug: Ondansetron IVP 4 mg IVP once; over 2 minutes Route: IVP; Site: right antecubital;kd3 00:07 Drug: morphine IVP or IV 4 mg IVP once over 4 mins Route: IVP; Infused Over: 4 mins; kd3 Site: right antecubital; 00:55 Drug: morphine IVP or IV 2 mg IVP once over 4 mins Route: IVP; Infused Over: 4 mins; jb4 Site: right antecubital; 02:00 Drug: Ciprofloxacin IVPB 400 mg 200 ml IVPB once over 60 mins Volume: 200 ml; Route: jb4 IVPB; Infused Over: 60 mins; Site: right antecubital; 02:00 Drug: metroNIDAZOLE IVPB 500 mg 100 ml IVPB at 200 ml/hr once over 30 mins Volume: 100 jb4 ml; Route: IVPB; Rate: 200 ml/hr; Infused Over: 30 mins; Site: right antecubital; 02:03 Drug: HYDROmorphone IVP 1 mg IVP once Route: IVP; Site: right hand; jb4 02:41 Drug: Ondansetron IVP 4 mg IVP once; over 2 minutes Route: IVP; Site: right hand; jb4 Disposition Summary: 01/19/23 01:31 Hospitalization Ordered Notes: Hospitalization Status: Inpatient Admission rn Provider: Peri Gibson rn Condition: Stable rn Problem: new rn Symptoms: are unchanged rn Bed/Room Type: Standard rn Location: Telemetry/MedSurg (Inpatient)(01/19/23 20:24) cg Room Assignment: [facility](01/19/23 20:24) cg Diagnosis - Diverticulitis of large intestine without perforation or abscess without bleeding rn Forms: - Medication Reconciliation Form rn - SBAR form rn - Leadership Thank You Letter rn Signatures: Dispatcher BacilioHost Leonides Feliciano MD MD rn Garcia, Cindy, RN RN cg Bryson, James, RN RN jb4 Divya Truong RN RN kd3 Corrections: (The following items were deleted from the chart) 01:31 Telemetry/MedSurg (Inpatient) rn cg 01:31 rn cg 05:46 05:45 ED course: Consulted with Dr. Gallo regarding patient's diagnosis of rn non-perforated diverticulitis, will see patient today. . rn 02: [facility] ER HOLD cg cg ERHOLD- cg cg
--- NOTE | 2023-01-19 01:31 | ER ---
Nurse's Notes [facility] Name: Anna Naik Age: 62 yrs Sex: Female : 1960 Arrival Date: 01/18/2023 Time: 23:03 Bed 23 Private MD: Peri Gibson C Diagnosis: Diverticulitis of large intestine without perforation or abscess without bleeding Presentation: 01/18 23:19 Chief complaint: Patient states: I am having severe left lower quadrant pain that goes kd3 into my back. It has been there for about a week but has gotten worse since yesterday. I have a history of diverticulitis and it feels similar to that. Coronavirus screen: Vaccine status: Patient reports receiving the 2nd dose of the covid vaccine. Ebola Screen: No symptoms or risks identified at this time. Initial Sepsis Screen: Does the patient meet any 2 criteria? No. Patient's initial sepsis screen is negative. Does the patient have a suspected source of infection? No. Patient's initial sepsis screen is negative. Risk Assessment: Do you want to hurt yourself or someone else? Patient reports no desire to harm self or others. Onset of symptoms was January 18, 2023. 23:19 Method Of Arrival: Ambulatory kd3 23:19 Acuity: VINCENZO 3 kd3 Triage Assessment: 23:20 General: Appears uncomfortable, Behavior is calm, cooperative. Pain: Complains of pain kd3 in left lower quadrant. GI: Abdomen is non-distended, Bowel sounds present X 4 quads. Historical: - Allergies: 23:20 Dexamethasone; kd3 - Immunization history:: Adult Immunizations up to date. - Social history:: Smoking status: Patient denies any tobacco usage or history of. - Family history:: not pertinent. - Hospitalizations: : No recent hospitalization is reported. Assessment: 23:35 General: Appears uncomfortable, Behavior is calm, cooperative. kd3 23:35 Pain: Complains of pain in left lower quadrant. Neuro: Level of Consciousness is awake, kd3 alert, obeys commands, Oriented to person, place, time, situation. Cardiovascular: Patient's skin is warm and dry. Respiratory: Airway is patent Trachea midline Respiratory effort is even, unlabored, Respiratory pattern is regular, symmetrical. GI: Abdomen is tender to palpation in left lower quadrant. 01/19 00:30 Reassessment: Patient appears in no apparent distress at this time. Patient and/or jb4 family updated on plan of care and expected duration. Pain level reassessed. Patient is alert, oriented x 3, equal unlabored respirations, skin warm/dry/pink. 01:30 Reassessment: Patient appears in no apparent distress at this time. Patient and/or jb4 family updated on plan of care and expected duration. Pain level reassessed. Patient is alert, oriented x 3, equal unlabored respirations, skin warm/dry/pink. 02:23 GI: Bowel sounds present X 4 quads. kd3 02:23 Reassessment: Patient appears in no apparent distress at this time. Patient and/or jb4 family updated on plan of care and expected duration. Pain level reassessed. Patient is alert, oriented x 3, equal unlabored respirations, skin warm/dry/pink. Vital Signs: 01/18 23:19 BP 135 / 89; Pulse 97; Resp 16; Temp 99.6; Pulse Ox 100% on R/A; Weight 73.48 kg; kd3 Height 5 ft. 5 in. ; 23:19 Body Mass Index 26.96 (73.48 kg, 165.1 cm) kd3 ED Course: 23:05 Patient arrived in ED. es 23:05 Peri Gibson MD is Private Physician. es 23:05 Leonides Christian MD is Attending Physician. rn 23:18 Divya Truong RN is Primary Nurse. kd3 23:20 Triage completed. kd3 23:20 Arm band placed on right wrist. kd3 23:33 CBC with Diff Sent. kd3 23:33 CMP Sent. kd3 23:33 Urinalysis w/ reflexes Sent. kd3 23:33 Inserted saline lock: 20 gauge in right antecubital area, using aseptic technique. kd3 Blood collected. 01/19 00:26 CT Abd/Pelvis - IV Contrast Only In Process Unspecified. EDMS 01:30 Peri Gibson MD is Hospitalizing Provider. rn Administered Medications: 00:07 Drug: Ondansetron IVP 4 mg IVP once; over 2 minutes Route: IVP; Site: right antecubital;kd3 00:07 Drug: morphine IVP or IV 4 mg IVP once over 4 mins Route: IVP; Infused Over: 4 mins; kd3 Site: right antecubital; 00:55 Drug: morphine IVP or IV 2 mg IVP once over 4 mins Route: IVP; Infused Over: 4 mins; jb4 Site: right antecubital; 02:00 Drug: Ciprofloxacin IVPB 400 mg 200 ml IVPB once over 60 mins Volume: 200 ml; Route: jb4 IVPB; Infused Over: 60 mins; Site: right antecubital; 02:00 Drug: metroNIDAZOLE IVPB 500 mg 100 ml IVPB at 200 ml/hr once over 30 mins Volume: 100 jb4 ml; Route: IVPB; Rate: 200 ml/hr; Infused Over: 30 mins; Site: right antecubital; 02:03 Drug: HYDROmorphone IVP 1 mg IVP once Route: IVP; Site: right hand; jb4 02:41 Drug: Ondansetron IVP 4 mg IVP once; over 2 minutes Route: IVP; Site: right hand; jb4 Outcome: 01:31 Decision to Hospitalize by Provider. rn 21:03 Patient left the ED. cm10 Signatures: Dispatcher [employer] Anjelica Canales Roman, MD MD rn Bryson, James, RN RN jb4 Divya Truong RN RN kd3 Marilu Batista RN RN cm10 Corrections: (The following items were deleted from the chart) 02:23 02:23 Reassessment: Patient and/or family updated on plan of care and expected kd3 duration. Pain level reassessed. Patient is alert, oriented x 3, equal unlabored respirations, skin warm/dry/pink. Patient states feeling better. Patient states symptoms have improved. kd3
[2023-01-19] MEDS ORDERED: METRONIDAZOLE 500mg IVPB 500 MG/100 ML BAG IV ONE (01:49)
[2023-01-19] MEDS ORDERED: CIPROFLOXACIN 400mg IV 400 MG/200 ML BAG IV ONE (01:49)
[2023-01-19] MEDS ORDERED: HYDROMORPHONE HCL 1 MG/ML INJ ONE (02:11)
[2023-01-19] MEDS: D5 0.45 NS 1,000 ML IV SCH ×3 (03:17→20:30)
[2023-01-19] MEDS ORDERED: D5 0.45 NS 1,000 ML IV ONE ×3 (03:34→19:55)
[2023-01-19 04:02] VITALS: BMI 26.9
[2023-01-19] MEDS: ONDANSETRON 4 MG/2 ML VIAL IV PRN ×2 (10:12→22:04)
[2023-01-19] MEDS ORDERED: PIPERACIL/TAZO 3.375 GM VIAL IV ONE ×2 (10:33→18:13)
[2023-01-19] MEDS ORDERED: NA CHLORIDE 0.9% 100 ML ONE ×2 (10:35→18:14)
[2023-01-19] MEDS: FLECAINIDE 100 MG TAB PO SCH ×2 (10:40→21:00)
[2023-01-19] MEDS: PIPER TAZO 3.375 GM in NA CHLORIDE 0.9% 100 ML IV SCH ×2 (10:40→18:10)
--- NOTE | 2023-01-19 12:07 | HP ---
Date of Admission: 01/19/2023 Chief Complaint: Abdominal pain. History Of Present Illness: This is a 62-year-old very pleasant female patient who came into emergen cy room with almost 1-week history of abdominal pain. The patient started to have this complaint las t weekend and reports that her pain was in the left lower quadrant, intermittent pain, and it did get better, but as of yesterday, it started to get worse. The patient did not seek any medical attentio n until last night. She decided to come to emergency room because of worsening of her pain and she d id have low-grade fever that started yesterday. Denies any nausea, vomiting, constipation, diarrhea. No blood in urine or blood in stool. No dysuria. After she was evaluated in the ER, she was admit bry to the hospital with diagnosis of acute diverticulitis. Allergies: TO DEXAMETHASONE IN THE FORM OF SIDE EFFECT CAUSING DIZZINESS AND NAUSEA. Medications: List reviewed. Review of Systems: GI: As mentioned above. Constitutional: As mentioned above. All other systems reviewed and negative. Past Medical History: Significant for hyperlipidemia, impaired fasting glucose, history of migraine headache, diverticulosis, cervical spondylosis, thoracic spondylosis, and lumbar spondylosis, and jovany or history of paroxysmal atrial fibrillation for which she is on antiarrhythmic medication. Past Surgical History: Had cervical spine surgery this year. Family History: Significant for hypertension, hyperlipidemia, and melanoma. Social History: Negative for smoking. Use of alcohol occasional. The patient did smoke in the past , but not in a long time. Physical Examination: Vital Signs: Last vital signs this morning, temperature 98.7, pulse 68, respiratory rate 16, blood p ressure 151/88, oxygen saturation 99%. Height 5 feet 5 inches, weight 161 pounds. General: Awake, alert, oriented, not in distress. HEENT: Head atraumatic, normocephalic. Conjunctivae nonerythematous. Sclerae white. Mouth, no thr ush or edema noted. Ears/Nose, no mass, lesion, discharge noted. Neck: Supple. No JVD, lymph nodes, bruit, thyromegaly noted. Lungs: Bilateral good equal air entry. Clear to auscultation. No rhonchi. No rales. Heart: Normal heart sounds, no murmur or gallop. Abdomen: Soft. Bowel sounds normal. No guarding, rigidity. No distention. No hepatosplenomegaly. No bruit. The patient does have significant tenderness in left lower quadrant. No rebound tendern ess. Extremities: No leg edema. No calf tenderness. Skin: No rash, ulcer, cellulitis. Lymphatics: No lymph node enlargement in neck, supraclavicular, infraclavicular region. Neuro: No focal neurological deficit. Chest: Unremarkable. External Genitalia: Deferred. Rectal: Deferred. Laboratory Data: White count 10.10, hemoglobin 13.4, platelets 209. Sodium 137, potassium 3.8, chlo ride 106, bicarb 26, BUN 13, creatinine 0.90, glucose 110. Liver function tests unremarkable. Urina lysis negative. CAT scan of abdomen and pelvis shows changes of diverticulitis without any complicat ions. Impression: 1.Acute diverticulitis. 2.Hyperlipidemia. 3.Impaired fasting glucose. 4.Cervical spondylosis. 5.Thoracic spondylosis. 6.Lumbar spondylosis. Plan: We will go ahead and admit the patient to hospital for further evaluation and management of th is problem. The patient is appropriate for inpatient and is [facility] We will go ahead and continue Zosyn which was started along with pain medication and nausea medic ation as needed. We will keep her n.p.o. except she may have a few sips of water or ice chips as nee ded, but we will not give her any diet today, and starting tomorrow, depending on her condition, we w ill consider starting clear liquid diet tomorrow. Possible discharge to go home either Saturday or Sat of next week. We will start Lovenox for DVT prophylaxis and maintenance IV fluid will be given today. Ambulation was encouraged. She takes flecainide for her paroxysmal atrial fibrillation, whic h will be continued. 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 All these details were discussed with the patient and her who was with her at bedside. JESSICA/MODL Voice ID: [id number]
[2023-01-19] MEDS: MORPHINE 4 MG/ML SYR IV PRN ×2 (13:50→22:04)
[2023-01-19] MEDS: ENOXAPARIN 40 MG/0.4 ML SQ SCH (18:10)
[2023-01-19] MEDS ORDERED: ENOXAPARIN 40 MG/0.4 ML SQ ONE (18:13)
--- NOTE | 2023-01-19 21:31 | RAD REPORT ---
EXAM DESCRIPTION: CT - Abdomen Pelvis W Contrast - 01/19/2023 6:52 am CLINICAL HISTORY: ABD PAIN TECHNIQUE: Contiguous axial images obtained through the abdomen and pelvis following the uneventful administration of IV contrast. Coronal and sagittal reformatted images were provided. This exam was performed according to our departmental dose-optimization program, which includes autom ated exposure control, adjustment of the mA and/or kV according to patient size and/or use of iterati ve reconstruction technique. COMPARISON: June 28 FINDINGS: Lung bases: Calcified granuloma. Liver: Fatty infiltration of the liver. Gallbladder and biliary system: Unremarkable Pancreas: Unremarkable Spleen: Unremarkable Adrenals: Unremarkable Kidneys: Normal renal cortical enhancement. No calculi. No hydronephrosis. GI: Sigmoid diverticulosis. Pericolonic inflammatory changes in the left lower quadrant consistent wi th acute diverticulitis. No evidence of perforation or organized pericolonic abscess. Appendix: No findings to suggest acute appendicitis. Urinary bladder: Unremarkable Reproductive: Unremarkable as visualized Lymph nodes: No pathologically enlarged lymph nodes. Peritoneum: No focal fluid collection. No free air. Vessels: No abdominal aortic aneurysm. Abdominal wall: Unremarkable Bones: Unremarkable IMPRESSION: 1. Acute sigmoid diverticulitis without evidence of perforation or organized pericolon ic abscess. 2. Fatty infiltration of the liver. Electronically signed by: John Tomlin MD 01/19/2023 12:40 AM CDT Due to temporary technical issues with the PACS/Fluency reporting system, reports are being signed by the in house radiologists without review as a courtesy to insure prompt reporting. The interpreting radiologist is fully responsible for the content of the report.
[2023-01-20] MEDS: PIPER TAZO 3.375 GM in NA CHLORIDE 0.9% 100 ML IV SCH ×3 (00:21→16:46)
[2023-01-20] MEDS: D5 0.45 NS 1,000 ML IV SCH ×3 (04:07→22:37)
[2023-01-20 07:39] LABS: Absolute Lymphocytes (CBC) 1.5 K/uL (0.7-4.9); Hematocrit 36.6 % (36.0-45.0); Lymphocytes % 17.3 % (15.3-44.8); MCV 94.2 fL (80-100); MPV 7.1 fL (7.6-11.3); Platelets 173 thou/uL (152-406); RBC Red Blood Cell Count 3.89 M/uL (3.86-4.86)
[2023-01-20 07:55] LABS: Albumin 2.8 g/dL (3.4-5.0); Bilirubin Total 0.5 mg/dL (0.2-1.0); Magnesium 2.1 mg/dL (1.6-2.4); Potassium 3.8 mEq/L (3.5-5.1); Protein, Total 6.2 g/dL (6.4-8.2)
[2023-01-20] MEDS: FLECAINIDE 100 MG TAB PO SCH ×2 (09:11→20:57)
[2023-01-20] MEDS: ACETAMINOPHEN 500 MG TAB PO PRN (09:11)
--- NOTE | 2023-01-20 09:50 | PN ---
Date of Progress Note: 01/20/2023 Subjective: Patient was seen this morning for followup. She is feeling overall better today than ye day. Abdominal pain is better. Last time, she used pain medication was last night around 10 o'c lock. After that, she has not used any pain medication. Denies any nausea, vomiting. No bowel move ment since she has been in the hospital. Physical Examination: Vital signs: Reviewed. Last vital signs this morning; temperature 99.3, pulse 74, respiratory rate 19, blood pressure 110/61. HEENT: Examination unremarkable. Lungs: Clear to auscultation. Heart: Sounds normal. Abdomen: Soft. Bowel sounds normal. No guarding, rigidity, distention. Presence of tenderness in left lower quadrant, but better today than yesterday. No rebound tenderness. Extremities: No leg edema. Laboratory Data: Today, white count 8.9, hemoglobin 12.5, platelets 173. Sodium 139, potassium 3.8, chloride 109, bicarb 29, BUN 4, creatinine 0.86, glucose 132. Liver function tests unremarkable. Impression: 1.Acute diverticulitis. 2.Hyperlipidemia. 3.Constipation. Plan: Patient will continue to receive her current IV antibiotic, which is Zosyn. We will reduce IV fluid rate to 50 cc/hours. Start her on clear liquid diet today. Ambulation was encouraged. Gigi gómez current DVT prophylaxis and patient was encouraged to ambulate. We will also start her on a stoo l softener Senokot-S 2 tablets daily starting today and I will see her tomorrow depending on her cond ition tomorrow. We will decide if we can possibly discharge her to go home tomorrow or not. JESSICA/MODL Voice ID: [id number] Report ID: [id number]
[2023-01-20] MEDS: DOCUSATE NA/SENNA CONC 1 TAB PO SCH (10:59)
[2023-01-20] MEDS: ENOXAPARIN 40 MG/0.4 ML SQ SCH (16:50)
[2023-01-20 22:24] VITALS: O2SAT 96
[2023-01-21] MEDS: PIPER TAZO 3.375 GM in NA CHLORIDE 0.9% 100 ML IV SCH ×2 (01:12→09:07)
[2023-01-21 03:07] LABS: Potassium 3.6 mEq/L (3.5-5.1)
[2023-01-21] MEDS: D5 0.45 NS 1,000 ML IV SCH (04:34)
[2023-01-21] MEDS: ACETAMINOPHEN 500 MG TAB PO PRN (06:10)
[2023-01-21] MEDS ORDERED: IBUPROFEN 400 MG TAB PO ONE (08:35)
[2023-01-21] MEDS ORDERED: POTASSIUM CL SA 10 MEQ TAB PO ONE (09:00)
[2023-01-21] MEDS ORDERED: POTASSIUM 25 MEQ EFFERV TAB PO ONE (09:00)
[2023-01-21] MEDS: DOCUSATE NA/SENNA CONC 1 TAB PO SCH (09:07)
[2023-01-21] MEDS: FLECAINIDE 100 MG TAB PO SCH (09:07)
[2023-01-21 13:20] VITALS: BP 130/77; TEMP 97.8
--- NOTE | 2023-01-21 20:02 | DS ---
Date of Discharge: 01/21/2023 Disposition: Discharged to go home. Physical Examination: HEENT: Unremarkable. Lungs: Clear to auscultation. Heart: Sounds normal. Abdomen: Soft. Bowel sounds normal. No guarding, rigidity, distention. Mild tenderness in left lo wer quadrant. No rebound tenderness. Extremities: No leg edema. Laboratory Data: Upon admission, sodium 137, potassium 3.8, chloride 106, bicarb 26, BUN 13, creatin ine 0.90, glucose 110. Liver function tests are unremarkable. Last chemistry today, sodium 141, pot assium 3.6, chloride 110, bicarb 28, BUN 5, creatinine 0.77, glucose 97. CBC upon admission, white c ount 10.10, hemoglobin 13.2, platelets 209. CAT scan of abdomen and pelvis done upon admission shows changes of diverticulitis without any complication. Hospital Course: This is a 62-year-old pleasant female patient came into emergency room with complai nts of abdominal pain. Please see dictated H and P for more information. After patient was evaluate d in the ER, she was admitted to the hospital with acute diverticulitis. Initially, she was kept n.p .o. IV fluid and IV antibiotic was started. IV pain medication was ordered. Day after admission, we started her on clear liquid diet and she has tolerated that very well. Today when I saw her, she in formed me that she did not use any pain medication all day yesterday and last night ambulating well. Overall, patient reports that her pain is at least 50% left compared to what it was when she first c tg in. She is tolerating diet well and denies any other new complaints this morning. Patient was a dvised to have screening colonoscopy done to sometime in March 2023. Patient is ambulating well an d tolerating her clear liquid diet very well. Final Diagnoses: 1.Acute diverticulitis. 2.Hyperlipidemia. 3.Impaired fasting glucose. 4.Cervical spondylosis. 5.Thoracic spondylosis. 6.Lumbar spondylosis. Discharge Medications And Instructions: 1.Continue all prior home medications. 2.Take Augmentin 875 mg 2 times a day for 10 days, take it with food. 3.Follow up at my office this week on . JESSICA/MODL Voice ID: [id number] Report ID: [id number]
== END 2023-01-21 13:36 | disposition home or self-care (01) | DRG 392 ==
LOC: ER 23:03 → ERHOLD 01-19 01:33 → 2ND 01-19 20:52
PROVIDERS: ADMIT Internal Medicine; ATTEND Internal Medicine
DX: K57.32 Diverticulitis of large intestine without perforation or abscess without bleeding (principal); E78.5 Hyperlipidemia, unspecified; K59.00 Constipation, unspecified; I48.0 Paroxysmal atrial fibrillation; M47.812 Spondylosis without myelopathy or radiculopathy, cervical region; M47.816 Spondylosis without myelopathy or radiculopathy, lumbar region; M47.814 Spondylosis without myelopathy or radiculopathy, thoracic region; R73.01 Impaired fasting glucose; Z88.8 Allergy status to other drugs, medicaments and biological substances
CPT/HCPCS: 36415; 74177; 80048; 80053; 81001; 83735; 85025; 99284; J0744; J1170; J1650; J2270; J2405; J2543; J7799; Q9967